=== PATIENT | male | born 1995 | race Caucasian/White ===

== ENCOUNTER 2017-04-20 12:30 | Emergency (ER) | payer SELFPAY ==
[~2017-04-20] VITALS: Ht 182.9 cm; Wt 87.8 kg
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
[2017-04-20 13:00] VITALS: BP 132/62; PULSE 74; RESP 16; TEMP 99.7; O2SAT 99
[2017-04-20] MEDS ORDERED: TETANUS/DIPHTHERIA TOXOID ADULT 0.5 ML VIAL IM ONE (13:00)
[2017-04-20] MEDS ORDERED: CEPHALEXIN MONOHYDRATE 500 MG CAP PO ONE (13:00)
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
[2017-04-20] MEDS ORDERED: LIDOCAINE HCL 1% 50 ML VIAL INFIL ONE (14:15)
[2017-04-20] MEDS ORDERED: LIDOCAINE HCL 1% 30 ML VIAL INFIL ONE (15:00)
[2017-04-20] MEDS ORDERED: AUGM500T7 PO (15:17)
[2017-04-20] MEDS ORDERED: BACI500O9 TOPICAL (15:17)
== END 2017-04-20 15:38 | disposition home or self-care (01) ==
LOC: PHED 12:30
DX: S01.81XA Laceration without foreign body of other part of head, initial encounter (principal); S00.83XA Contusion of other part of head, initial encounter; J01.20 Acute ethmoidal sinusitis, unspecified; Z23 Encounter for immunization; Z72.0 Tobacco use; Y09 Assault by unspecified means
CPT/HCPCS: 12011; 70450; 70486; 73130; 90471; 90714

== ENCOUNTER 2017-04-28 15:07 | Emergency (ER) | payer SELFPAY ==
[~2017-04-28 15:07] MED LIST: AUGM500T7 PO; BACI500O9 TOPICAL
[2017-04-28 15:26] VITALS: PULSE 66; RESP 18; TEMP 98; O2SAT 98
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
== END 2017-04-28 16:09 | disposition home or self-care (01) ==
LOC: PHEFT 15:07
DX: S01.412D Laceration without foreign body of left cheek and temporomandibular area, subsequent encounter (principal); Z48.02 Encounter for removal of sutures; X58.XXXD Exposure to other specified factors, subsequent encounter
CPT/HCPCS: 99281